=== PATIENT | male | born 1950 | race Two or more races ===

== ENCOUNTER 2022-06-25 12:20 | Outpatient (CLI) | payer MEDICARE, OTHER | END 2022-06-25 23:59 | disposition home or self-care (01) | LOC: WOU 12:20 | PROVIDERS: ATTEND Podiatrist Foot & Ankle Surgery | DX: I83.893 Varicose veins of bilateral lower extremities with other complications (principal); L03.116 Cellulitis of left lower limb; L03.115 Cellulitis of right lower limb; I89.0 Lymphedema, not elsewhere classified; B35.1 Tinea unguium; L60.2 Onychogryphosis; E66.01 Morbid (severe) obesity due to excess calories; Z68.36 Body mass index [BMI] 36.0-36.9, adult; E11.9 Type 2 diabetes mellitus without complications; Z79.4 Long term (current) use of insulin; Z79.82 Long term (current) use of aspirin; Z79.899 Other long term (current) drug therapy; I25.10 Atherosclerotic heart disease of native coronary artery without angina pectoris; Z98.61 Coronary angioplasty status; J44.9 Chronic obstructive pulmonary disease, unspecified; Z87.891 Personal history of nicotine dependence; Z80.0 Family history of malignant neoplasm of digestive organs; Z82.49 Family history of ischemic heart disease and other diseases of the circulatory system | CPT/HCPCS: G0463 ==

== ENCOUNTER 2022-07-24 05:24 | Emergency (ER) | payer MEDICARE, OTHER ==
[~2022-07-24] VITALS: Ht 177.8 cm; Wt 101.2 kg
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
--- NOTE | 2022-07-24 05:37 | NUR ---
emt aty bedside for ekg
--- NOTE | 2022-07-24 05:41 | NUR ---
xray at bedside
--- NOTE | 2022-07-24 05:47 | NUR ---
PT DID NOT WISH TO HAVE IV LINE INSERTED AT THIS TIME BUT CONSENTED TO BLOOD DRAW. PHLEBOTIMIST PAGED.
[2022-07-24 06:02] LABS: BASOPHILS # (AUTO) 0.1 K/uL (0.0-0.2); BASOPHILS % (AUTO) 0.9 % (0.0-2.0); EOSINOPHILS % (AUTO) 2.4 % (0.0-6.0); HEMATOCRIT 44 % (39-51); HEMOGLOBIN 14.6 g/dL (13.5-17.5); LYMPHOCYTES # (AUTO) 1.9 K/uL (0.8-4.8); LYMPHOCYTES % (AUTO) 29.1 % (20.0-44.0); MEAN CORPUSCULAR HGB CONC 34 g/dl (31.0-36.0); MEAN CORPUSCULAR VOLUME 90 fL (80-96); MONOCYTES # (AUTO) 0.5 K/uL (0.1-1.30); MONOCYTES % (AUTO) 7.5 % (2.0-12.0); NEUTROPHILS % (AUTO) 60.1 % (43.0-81.0); PLATELET COUNT (AUTO) 135 K/uL (150-450); RED BLOOD CELL COUNT(AUTO) 4.87 MIL/uL (4.5-6.0); WHITE BLOOD COUNT (AUTO) 6.6 K/uL (4.3-11.0)
[2022-07-24 06:09] LABS: CALCIUM, SERUM 9.9 mg/dL (8.5-10.1); CARBON DIOXIDE 35 mmol/L (21-32); CHLORIDE 103 mmol/L (98-107); GLUCOSE 145 mg/dL (74-106); POTASSIUM 3.9 mmol/L (3.5-5.1); SODIUM SERUM 140 mmol/L (136-145); UREA NITROGEN, BLOOD 20 mg/dL (7-18)
[2022-07-24] MEDS ORDERED: LOSA50TA39 PO (08:11)
[2022-07-24] MEDS ORDERED: SPIR25TA6 PO (08:11)
[2022-07-24] MEDS ORDERED: INSU100V7 SQ ×2 (08:11)
[2022-07-24] MEDS ORDERED: ASPI-1420 PO (08:11)
[2022-07-24] MEDS ORDERED: LOVA40TA2 PO (08:11)
[2022-07-24] MEDS ORDERED: INSU100I14 SQ (08:11)
[2022-07-24] MEDS ORDERED: CEPH500C2 PO (08:11)
[2022-07-24] MEDS ORDERED: EMPA25TA PO (08:11)
[2022-07-24] MEDS ORDERED: DOXY100C2 PO ×2 (08:29→09:33)
--- NOTE | 2022-07-24 08:44 | NUR ---
Patient discharged to home in stable condition. Written and verbal after care instructions given. Patient verbalizes understanding of instruction.
[2022-07-24 08:55] VITALS: BP 110/69
== END 2022-07-24 08:55 | disposition home or self-care (01) ==
LOC: ER 05:26
DX: R07.89 Other chest pain (principal); J44.9 Chronic obstructive pulmonary disease, unspecified; J18.9 Pneumonia, unspecified organism; I10 Essential (primary) hypertension; E11.9 Type 2 diabetes mellitus without complications; E78.5 Hyperlipidemia, unspecified; Z60.2 Problems related to living alone; Z79.899 Other long term (current) drug therapy
CPT/HCPCS: 36415; 71045-TC; 80048-TC; 84484-TC; 85025-TC

== ENCOUNTER 2023-12-04 13:55 | Inpatient (IN) | payer MEDICARE, OTHER ==
[~2023-12-04] VITALS: Ht 177.8 cm; Wt 104.3 kg
[~2023-12-04 13:55] MED LIST: ASPI-1420 PO; CEPH500C2 PO; DOXY100C2 PO; EMPA25TA PO; INSU100I14 SQ; INSU100V7 SQ; LOSA50TA39 PO; LOVA40TA2 PO; SPIR25TA6 PO
[2023-12-04] MEDS ORDERED: IPRATROPIUM NEB FS 0.5 MG/2.5 ML AMPUL.NEB NEB ONE (15:00)
[2023-12-04] MEDS ORDERED: ALBUTEROL FS 2.5 MG/3 ML VIAL.NEB NEB ONE (15:00)
[2023-12-04] MEDS ORDERED: Magnesium 1GM/D5W 100ML PREMIX 200 ML IV ONE (15:00)
[2023-12-04] MEDS ORDERED: methylPREDNISolone SOD SUCC 125 MG/2ML VIAL IV ONE (15:00)
[2023-12-04] MEDS ORDERED: methylPREDNISolone SOD SUCC 125 MG/2ML VIAL ONE (15:06)
[2023-12-04] MEDS ORDERED: Magnesium 1GM/D5W 100ML PREMIX 100 ML IV ONE (15:06)
[2023-12-04] MEDS ORDERED: IPRATROPIUM NEB FS 0.5 MG/2.5 ML AMPUL.NEB ONE (15:37)
[2023-12-04] MEDS ORDERED: ALBUTEROL FS 2.5 MG/3 ML VIAL.NEB ONE (15:37)
[2023-12-04 15:39] LABS: BASOPHILS # (AUTO) 0.1 K/uL (0.0-0.2); BASOPHILS % (AUTO) 0.5 % (0.0-2.0); EOSINOPHILS % (AUTO) 0.4 % (0.0-6.0); HEMATOCRIT 46 % (39-51); HEMOGLOBIN 15.8 g/dL (13.5-17.5); LYMPHOCYTES # (AUTO) 1.5 K/uL (0.8-4.8); LYMPHOCYTES % (AUTO) 13.6 % (20.0-44.0); MEAN CORPUSCULAR HEMOGLOBIN 32 PG (26.0-33.0); MEAN CORPUSCULAR HGB CONC 34 g/dl (31.0-36.0); MEAN CORPUSCULAR VOLUME 93 fL (80-96); MONOCYTES # (AUTO) 0.5 K/uL (0.1-1.30); MONOCYTES % (AUTO) 4.8 % (2.0-12.0); NEUTROPHILS # (AUTO) 9.1 K/uL (1.8-8.9); NEUTROPHILS % (AUTO) 80.7 % (43.0-81.0); PLATELET COUNT (AUTO) 204 K/uL (150-450); RED BLOOD CELL COUNT(AUTO) 5.01 MIL/uL (4.5-6.0); RED CELL DISTRIBUTION WIDTH 15.5 % (11.5-15.0); WHITE BLOOD COUNT (AUTO) 11.3 K/uL (4.3-11.0)
[2023-12-04 15:45] VITALS: O2SAT 92
[2023-12-04] MEDS ORDERED: AMIO200T5 PO (15:53)
[2023-12-04] MEDS ORDERED: APIX5TAB PO (15:53)
[2023-12-04] MEDS ORDERED: DILT-32 PO (15:53)
[2023-12-04] MEDS ORDERED: CHOL400C8 PO (15:53)
[2023-12-04] MEDS ORDERED: CIPR250T4 PO (15:53)
[2023-12-04 15:58] VITALS: O2SAT 99
[2023-12-04 16:00] LABS: ALANINE AMINOTRANSFERASE 22 U/L (12-78); ALKALINE PHOSPHATASE 112 U/L (46-116); ASPARTATE AMINOTRANSFERASE 19 U/L (15-37); BILIRUBIN,DIRECT 0.6 mg/dL (0.0-0.2); CALCIUM, SERUM 10.2 mg/dL (8.5-10.1); CARBON DIOXIDE 33 mmol/L (21-32); CHLORIDE 99 mmol/L (98-107); CREATININE 1.1 mg/dL (0.6-1.3); GLUCOSE 198 mg/dL (74-106); SODIUM SERUM 137 mmol/L (136-145); TOTAL PROTEIN, SERUM 7.7 g/dL (6.4-8.2); UREA NITROGEN, BLOOD 25 mg/dL (7-18)
[2023-12-04 17:21] LABS: ANISOCYTOSIS 1+; EOSINOPHILS % (MANUAL) 1 % (0-4); LYMPHOCYTES % (MANUAL) 18 % (16-48); MONOCYTES % (MANUAL) 7 % (0-11.0); NEUTROPHILS % (MANUAL) 74 (42-76); PLATELET ESTIMATE ADEQUATE
[2023-12-04] MEDS ORDERED: ACETAMINOPHEN 325 MG TABLET PO PRN (18:00)
[2023-12-04] MEDS ORDERED: Z GUARD REMEDY 4 OZ OINT TP PRN (18:00)
[2023-12-04] MEDS ORDERED: AZITHROMYCIN 250 MG TABLET PO ONE (18:00)
[2023-12-04] MEDS ORDERED: MAGNESIUM HYDROXIDE 30 ML UDC PO PRN (18:00)
[2023-12-04] MEDS ORDERED: MAG HYDROX/AL HYDROX/SIMETH 30 ML UDC PO PRN (18:00)
[2023-12-04] MEDS ORDERED: ONDANSETRON HCL/PF 4 MG/2 ML VIAL IVP PRN (18:00)
[2023-12-04] MEDS ORDERED: DEXTROSE 50%-WATER 50 ML DISP.SYRIN IV PRN (18:30)
[2023-12-04] MEDS ORDERED: BUMETANIDE INJ 4 MG in IV NS 0.9% 24 ML IV ONE (18:30)
[2023-12-04 19:23] LABS: THYROID STIMULATING HORMONE 1.038 uIU/mL (0.358-3.74)
[2023-12-04 20:00] VITALS: BP 124/58; TEMP 97.6; O2SAT 97
[2023-12-04] MEDS: IPRATROPIUM NEB FS 0.5 MG/2.5 ML AMPUL.NEB NEB SCH (20:28)
[2023-12-04 20:29] VITALS: O2SAT 94
[2023-12-04] MEDS: ALBUTEROL FS 2.5 MG/3 ML VIAL.NEB NEB SCH (20:29)
[2023-12-04 20:41] VITALS: O2SAT 95
[2023-12-04] MEDS: ATORVASTATIN 40 MG TABLET PO SCH (22:21)
[2023-12-04] MEDS: methylPREDNISolone SOD SUCC 40 MG/ML VIAL IV SCH (22:21)
[2023-12-04] MEDS: INSULIN GLARGINE, 100 UNIT/ML CARTRIDGE SQ SCH (22:44)
[2023-12-04] MEDS: INSULIN REGULAR, HUMAN 100 UNIT/ML 3 ML VIAL SQ PRN (22:46)
[2023-12-04] MEDS: BLOOD SUGAR DIAGNOSTIC 1 EACH STRIP IN SCH (22:53)
[2023-12-05] VITALS (11 sets, daily range): BP systolic 85–148; BP diastolic 56–67; TEMP 97.6–98.2; O2SAT 95–100
[2023-12-05] MEDS: methylPREDNISolone SOD SUCC 40 MG/ML VIAL IV SCH ×3 (05:57→20:20)
[2023-12-05 06:48] LABS: BASOPHILS % (AUTO) 0.1 % (0.0-2.0); EOSINOPHILS % (AUTO) 0.1 % (0.0-6.0); HEMATOCRIT 45 % (39-51); HEMOGLOBIN 15.3 g/dL (13.5-17.5); LYMPHOCYTES # (AUTO) 0.6 K/uL (0.8-4.8); LYMPHOCYTES % (AUTO) 8.6 % (20.0-44.0); MEAN CORPUSCULAR HEMOGLOBIN 32 PG (26.0-33.0); MEAN CORPUSCULAR HGB CONC 34 g/dl (31.0-36.0); MEAN CORPUSCULAR VOLUME 92 fL (80-96); MONOCYTES # (AUTO) 0.2 K/uL (0.1-1.30); MONOCYTES % (AUTO) 2.5 % (2.0-12.0); NEUTROPHILS # (AUTO) 6.3 K/uL (1.8-8.9); NEUTROPHILS % (AUTO) 88.7 % (43.0-81.0); PLATELET COUNT (AUTO) 181 K/uL (150-450); RED BLOOD CELL COUNT(AUTO) 4.86 MIL/uL (4.5-6.0); WHITE BLOOD COUNT (AUTO) 7.2 K/uL (4.3-11.0)
[2023-12-05] MEDS: INSULIN REGULAR, HUMAN 100 UNIT/ML 3 ML VIAL SQ PRN ×3 (06:54→21:29)
[2023-12-05] MEDS: ALBUTEROL FS 2.5 MG/3 ML VIAL.NEB NEB SCH ×4 (07:47→20:28)
[2023-12-05] MEDS: IPRATROPIUM NEB FS 0.5 MG/2.5 ML AMPUL.NEB NEB SCH ×4 (07:47→20:28)
[2023-12-05] MEDS: BLOOD SUGAR DIAGNOSTIC 1 EACH STRIP IN SCH ×4 (07:51→21:26)
[2023-12-05] MEDS: PANTOPRAZOLE 40 MG TABLET.DR PO SCH (07:51)
[2023-12-05] MEDS: ASPIRIN EC 81 MG TABLET.DR PO SCH (08:15)
[2023-12-05] MEDS: AMIODARONE HCL 200 MG TABLET PO SCH (08:15)
[2023-12-05] MEDS: SPIRONOLACTONE 25 MG TABLET PO SCH ×2 (08:15→09:00)
[2023-12-05] MEDS: DILTIAZEM HCL CD 120 MG PO SCH (08:15)
[2023-12-05] MEDS: LOSARTAN POTASSIUM 50 MG TABLET PO SCH (08:15)
[2023-12-05] MEDS: APIXABAN 5 MG TABLET PO SCH ×2 (08:16→17:08)
[2023-12-05] MEDS: EMPAGLIFLOZIN 25 MG TABLET PO SCH (08:17)
[2023-12-05 08:18] LABS: CALCIUM, SERUM 9.9 mg/dL (8.5-10.1); MAGNESIUM 2.4 mg/dL (1.8-2.4); PHOSPHORUS 4.7 mg/dL (2.5-4.9); POTASSIUM 4.3 mmol/L (3.5-5.1)
[2023-12-05] MEDS: INSULIN GLARGINE, 100 UNIT/ML CARTRIDGE SQ SCH ×2 (08:26→21:28)
[2023-12-05 09:50] LABS: ABG BASE EXCESS 4.7 mmol/L; ABG OXYGEN SATURATION 93.6 % (92.0-98.5); ABG PCO2 66.2 mmHg (35.0-45.0); ABG PO2 70.5 mmHg (75.0-100.0); ABG TOTAL HEMOGLOBIN 16.4 G/dL (13.5-18.0); AaDO2 80.2 mmHg; COHb 1.7 % (0.5-1.5); MetHb 0.1 % (0.0-1.5); O2Hb 91.9 % (94.0-97.0); SITE, ABG Left Radial; VENT MODE, BG 3L NC
[2023-12-05 11:22] LABS: BAND % (MANUAL) 5 % (0.0-5.0); EOSINOPHILS % (MANUAL) 0 % (0-4); LYMPHOCYTES % (MANUAL) 11 % (16-48); MONOCYTES % (MANUAL) 3 % (0-11.0); NEUTROPHILS % (MANUAL) 81 (42-76); PLATELET ESTIMATE ADEQUATE
[2023-12-05] MEDS: AMOXICILLIN TRIHYDRATE 250 MG CAPSULE PO SCH ×2 (13:25→20:20)
[2023-12-05] MEDS: AZITHROMYCIN 250 MG TABLET PO SCH (17:08)
[2023-12-05] MEDS: ATORVASTATIN 40 MG TABLET PO SCH (21:31)
[2023-12-06] VITALS (12 sets, daily range): BP systolic 107–128; BP diastolic 47–82; TEMP 97.7–98.2; O2SAT 93–99
[2023-12-06] MEDS ORDERED: DEXTROSE 50%-WATER 50 ML DISP.SYRIN IV PRN (01:00)
[2023-12-06] MEDS: BLOOD SUGAR DIAGNOSTIC 1 EACH STRIP IN SCH ×6 (01:08→21:55)
[2023-12-06] MEDS: INSULIN REGULAR, HUMAN 100 UNIT/ML 3 ML VIAL SQ PRN ×6 (01:12→22:52)
[2023-12-06] MEDS: methylPREDNISolone SOD SUCC 40 MG/ML VIAL IV SCH ×3 (04:54→21:38)
[2023-12-06] MEDS: AMOXICILLIN TRIHYDRATE 250 MG CAPSULE PO SCH ×3 (04:54→21:38)
[2023-12-06] MEDS: IPRATROPIUM NEB FS 0.5 MG/2.5 ML AMPUL.NEB NEB SCH ×4 (08:18→19:54)
[2023-12-06] MEDS: ALBUTEROL FS 2.5 MG/3 ML VIAL.NEB NEB SCH ×4 (08:18→19:54)
[2023-12-06] MEDS: ASPIRIN EC 81 MG TABLET.DR PO SCH (09:04)
[2023-12-06] MEDS: DILTIAZEM HCL CD 120 MG PO SCH (09:05)
[2023-12-06] MEDS: PANTOPRAZOLE 40 MG TABLET.DR PO SCH (09:05)
[2023-12-06] MEDS: LOSARTAN POTASSIUM 50 MG TABLET PO SCH (09:06)
[2023-12-06] MEDS: AMIODARONE HCL 200 MG TABLET PO SCH (09:06)
[2023-12-06] MEDS: SPIRONOLACTONE 25 MG TABLET PO SCH (09:06)
[2023-12-06] MEDS: EMPAGLIFLOZIN 25 MG TABLET PO SCH (09:07)
[2023-12-06] MEDS: APIXABAN 5 MG TABLET PO SCH ×2 (09:13→17:22)
[2023-12-06] MEDS: INSULIN GLARGINE, 100 UNIT/ML CARTRIDGE SQ SCH ×2 (09:14→22:52)
[2023-12-06] MEDS: AZITHROMYCIN 250 MG TABLET PO SCH (17:16)
[2023-12-06] MEDS: ATORVASTATIN 40 MG TABLET PO SCH (21:38)
[2023-12-07] VITALS (11 sets, daily range): BP systolic 117–123; BP diastolic 46–101; TEMP 97.6–97.7; O2SAT 94–100
[2023-12-07] MEDS: BLOOD SUGAR DIAGNOSTIC 1 EACH STRIP IN SCH ×6 (01:00→21:51)
[2023-12-07] MEDS: methylPREDNISolone SOD SUCC 40 MG/ML VIAL IV SCH (04:57)
[2023-12-07] MEDS: AMOXICILLIN TRIHYDRATE 250 MG CAPSULE PO SCH ×3 (04:57→21:55)
[2023-12-07] MEDS: INSULIN REGULAR, HUMAN 100 UNIT/ML 3 ML VIAL SQ PRN ×4 (05:16→21:54)
[2023-12-07 07:23] LABS: HEMATOCRIT 46 % (39-51); HEMOGLOBIN 15.5 g/dL (13.5-17.5); LYMPHOCYTES # (AUTO) 0.6 K/uL (0.8-4.8); LYMPHOCYTES % (AUTO) 4.7 % (20.0-44.0); MEAN CORPUSCULAR HEMOGLOBIN 32 PG (26.0-33.0); MEAN CORPUSCULAR HGB CONC 34 g/dl (31.0-36.0); MEAN CORPUSCULAR VOLUME 93 fL (80-96); MONOCYTES # (AUTO) 0.2 K/uL (0.1-1.30); MONOCYTES % (AUTO) 1.7 % (2.0-12.0); NEUTROPHILS % (AUTO) 93.6 % (43.0-81.0); PLATELET COUNT (AUTO) 174 K/uL (150-450); WHITE BLOOD COUNT (AUTO) 11.8 K/uL (4.3-11.0)
[2023-12-07] MEDS: IPRATROPIUM NEB FS 0.5 MG/2.5 ML AMPUL.NEB NEB SCH ×4 (07:46→20:14)
[2023-12-07] MEDS: ALBUTEROL FS 2.5 MG/3 ML VIAL.NEB NEB SCH ×4 (07:46→20:14)
[2023-12-07 07:58] LABS: CALCIUM, SERUM 9.4 mg/dL (8.5-10.1); CREATININE 0.9 mg/dL (0.6-1.3); PHOSPHORUS 4.6 mg/dL (2.5-4.9); POTASSIUM 4.3 mmol/L (3.5-5.1)
[2023-12-07] MEDS: LOSARTAN POTASSIUM 50 MG TABLET PO SCH (08:33)
[2023-12-07] MEDS: DILTIAZEM HCL CD 120 MG PO SCH (08:34)
[2023-12-07] MEDS: EMPAGLIFLOZIN 25 MG TABLET PO SCH (08:34)
[2023-12-07] MEDS: ASPIRIN EC 81 MG TABLET.DR PO SCH (08:34)
[2023-12-07] MEDS: PANTOPRAZOLE 40 MG TABLET.DR PO SCH (08:35)
[2023-12-07] MEDS: SPIRONOLACTONE 25 MG TABLET PO SCH (08:35)
[2023-12-07] MEDS: AMIODARONE HCL 200 MG TABLET PO SCH (08:35)
[2023-12-07] MEDS: APIXABAN 5 MG TABLET PO SCH ×2 (08:36→17:45)
[2023-12-07] MEDS: INSULIN GLARGINE, 100 UNIT/ML CARTRIDGE SQ SCH ×2 (08:40→22:08)
[2023-12-07 08:56] LABS: MAGNESIUM 2.4 mg/dL (1.8-2.4)
[2023-12-07 10:48] LABS: NEUTROPHILS % (MANUAL) 90 (42-76)
[2023-12-07 10:49] LABS: BAND % (MANUAL) 2 % (0.0-5.0); BASOPHILS % (MANUAL) 0 % (0.0-2.0); EOSINOPHILS % (MANUAL) 0 % (0-4); LYMPHOCYTES % (MANUAL) 5 % (16-48); MONOCYTES % (MANUAL) 3 % (0-11.0); PLATELET ESTIMATE ADEQUATE; STOMATOCYTES 1+
[2023-12-07] MEDS: AZITHROMYCIN 250 MG TABLET PO SCH (17:43)
[2023-12-07] MEDS: ATORVASTATIN 40 MG TABLET PO SCH (21:54)
[2023-12-08] MEDS: BLOOD SUGAR DIAGNOSTIC 1 EACH STRIP IN SCH ×4 (01:12→12:45)
[2023-12-08] MEDS: INSULIN REGULAR, HUMAN 100 UNIT/ML 3 ML VIAL SQ PRN ×3 (01:15→12:48)
[2023-12-08] MEDS: AMOXICILLIN TRIHYDRATE 250 MG CAPSULE PO SCH ×2 (05:20→12:46)
[2023-12-08 07:10] LABS: EOSINOPHILS % (AUTO) 0.1 % (0.0-6.0); HEMATOCRIT 49 % (39-51); HEMOGLOBIN 16.4 g/dL (13.5-17.5); LYMPHOCYTES # (AUTO) 1.2 K/uL (0.8-4.8); LYMPHOCYTES % (AUTO) 7.5 % (20.0-44.0); MEAN CORPUSCULAR HEMOGLOBIN 31 PG (26.0-33.0); MEAN CORPUSCULAR HGB CONC 34 g/dl (31.0-36.0); MEAN CORPUSCULAR VOLUME 93 fL (80-96); MONOCYTES # (AUTO) 0.7 K/uL (0.1-1.30); MONOCYTES % (AUTO) 4.3 % (2.0-12.0); NEUTROPHILS # (AUTO) 14.4 K/uL (1.8-8.9); NEUTROPHILS % (AUTO) 88.1 % (43.0-81.0); PLATELET COUNT (AUTO) 203 K/uL (150-450); RED BLOOD CELL COUNT(AUTO) 5.25 MIL/uL (4.5-6.0); RED CELL DISTRIBUTION WIDTH 15.6 % (11.5-15.0); WHITE BLOOD COUNT (AUTO) 16.4 K/uL (4.3-11.0)
[2023-12-08 07:12] LABS: CARBON DIOXIDE 36 mmol/L (21-32); CHLORIDE 99 mmol/L (98-107); MAGNESIUM 2.5 mg/dL (1.8-2.4); PHOSPHORUS 4.3 mg/dL (2.5-4.9); POTASSIUM 3.6 mmol/L (3.5-5.1); SODIUM SERUM 140 mmol/L (136-145); UREA NITROGEN, BLOOD 24 mg/dL (7-18)
[2023-12-08] MEDS: IPRATROPIUM NEB FS 0.5 MG/2.5 ML AMPUL.NEB NEB SCH ×2 (07:34→11:36)
[2023-12-08] MEDS: ALBUTEROL FS 2.5 MG/3 ML VIAL.NEB NEB SCH ×2 (07:35→11:36)
[2023-12-08 07:37] VITALS: O2SAT 93
[2023-12-08 07:43] LABS: GLUCOSE 42 mg/dL (74-106)
[2023-12-08 07:52] VITALS: O2SAT 100
[2023-12-08 08:00] VITALS: BP 131/54; TEMP 98.4; O2SAT 96
[2023-12-08] MEDS: PANTOPRAZOLE 40 MG TABLET.DR PO SCH (08:52)
[2023-12-08] MEDS: SPIRONOLACTONE 25 MG TABLET PO SCH (08:53)
[2023-12-08] MEDS: ASPIRIN EC 81 MG TABLET.DR PO SCH (08:53)
[2023-12-08] MEDS: DILTIAZEM HCL CD 120 MG PO SCH (08:54)
[2023-12-08] MEDS: EMPAGLIFLOZIN 25 MG TABLET PO SCH (08:54)
[2023-12-08] MEDS: AMIODARONE HCL 200 MG TABLET PO SCH (08:54)
[2023-12-08 08:55] VITALS: BP 131/60
[2023-12-08] MEDS: LOSARTAN POTASSIUM 50 MG TABLET PO SCH (08:55)
[2023-12-08] MEDS: APIXABAN 5 MG TABLET PO SCH (08:56)
[2023-12-08] MEDS: INSULIN GLARGINE, 100 UNIT/ML CARTRIDGE SQ SCH (08:56)
[2023-12-08] MEDS ORDERED: methylPREDNISolone SOD SUCC 40 MG/ML VIAL IV SCH (09:00)
[2023-12-08] MEDS ORDERED: MUPIROCIN OINT 2% 22 GM TUBE TP SCH (09:00)
[2023-12-08 11:38] VITALS: O2SAT 96
[2023-12-08 11:48] VITALS: O2SAT 100
[2023-12-08] MEDS ORDERED: INSULIN GLARGINE, 100 UNIT/ML CARTRIDGE SQ SCH (22:00)
== END 2023-12-08 14:11 | disposition home or self-care (01) | DRG 190 ==
LOC: ER 15:30 → TELE 16:35 → MED 12-06 15:51
PROVIDERS: ADMIT Nurse Practitioner Acute Care; ATTEND Internal Medicine
PROC: 0HDNXZZ Extraction of Left Foot Skin, External Approach (ICD-10-PCS; principal; 2023-12-07)
PROC: 0HDLXZZ Extraction of Left Lower Leg Skin, External Approach (ICD-10-PCS; 2023-12-08)
DX: J44.1 Chronic obstructive pulmonary disease with (acute) exacerbation (principal); I50.33 Acute on chronic diastolic (congestive) heart failure; J96.21 Acute and chronic respiratory failure with hypoxia; J96.22 Acute and chronic respiratory failure with hypercapnia; Z59.00 Homelessness unspecified; E87.3 Alkalosis; E11.65 Type 2 diabetes mellitus with hyperglycemia; E11.51 Type 2 diabetes mellitus with diabetic peripheral angiopathy without gangrene; E11.42 Type 2 diabetes mellitus with diabetic polyneuropathy; Z79.01 Long term (current) use of anticoagulants; Z79.4 Long term (current) use of insulin; Z79.84 Long term (current) use of oral hypoglycemic drugs; Z79.899 Other long term (current) drug therapy; D72.829 Elevated white blood cell count, unspecified; E78.5 Hyperlipidemia, unspecified; E83.52 Hypercalcemia; I11.0 Hypertensive heart disease with heart failure; Z79.82 Long term (current) use of aspirin; Z87.891 Personal history of nicotine dependence; E86.0 Dehydration; T38.0X5A Adverse effect of glucocorticoids and synthetic analogues, initial encounter; Y92.9 Unspecified place or not applicable; E66.9 Obesity, unspecified; Z68.33 Body mass index [BMI] 33.0-33.9, adult
CPT/HCPCS: 36415; 36600; 71045-TC; 80048-TC; 80061-TC; 80076-TC; 82803-TC; 82962-TC; 83735-TC; 83880; 83970; 84100-TC; 84443-TC; 84484-TC; 85025-TC; 87081-TC; 93307-TC; 94799-TC; A4223; G0378; J1815; J2920; J2930; J3475; J3490; J7030; J7050

== ENCOUNTER 2023-12-16 23:59 | Inpatient (IN) | payer MEDICARE, OTHER ==
[~2023-12-16] VITALS: Ht 177.8 cm; Wt 108.4 kg
[~2023-12-16 23:59] MED LIST changes: +AMIO200T5 PO; +APIX5TAB PO; -CEPH500C2 PO; +CHOL400C8 PO; +CIPR250T4 PO; +DILT-32 PO; -DOXY100C2 PO; -INSU100I14 SQ
[2023-12-17 00:58] LABS: BASOPHILS % (AUTO) 0.2 % (0.0-2.0); EOSINOPHILS # (AUTO) 0.1 K/uL (0.0-0.7); EOSINOPHILS % (AUTO) 0.7 % (0.0-6.0); HEMATOCRIT 51 % (39-51); HEMOGLOBIN 17.2 g/dL (13.5-17.5); LYMPHOCYTES % (AUTO) 7.5 % (20.0-44.0); MEAN CORPUSCULAR HEMOGLOBIN 32 PG (26.0-33.0); MEAN CORPUSCULAR HGB CONC 34 g/dl (31.0-36.0); MEAN CORPUSCULAR VOLUME 96 fL (80-96); MONOCYTES # (AUTO) 0.4 K/uL (0.1-1.30); MONOCYTES % (AUTO) 2.9 % (2.0-12.0); NEUTROPHILS # (AUTO) 12.2 K/uL (1.8-8.9); NEUTROPHILS % (AUTO) 88.7 % (43.0-81.0); PLATELET COUNT (AUTO) 174 K/uL (150-450); RED BLOOD CELL COUNT(AUTO) 5.36 MIL/uL (4.5-6.0); RED CELL DISTRIBUTION WIDTH 17.6 % (11.5-15.0); WHITE BLOOD COUNT (AUTO) 13.8 K/uL (4.3-11.0)
[2023-12-17 01:13] LABS: CALCIUM, SERUM 9.4 mg/dL (8.5-10.1); CREATININE 1.1 mg/dL (0.6-1.3); POTASSIUM 4.3 mmol/L (3.5-5.1)
[2023-12-17 01:18] LABS: LACTIC ACID 1.3 mmol/L (0.4-2.0)
[2023-12-17 01:27] LABS: ALBUMIN 3.3 g/dL (3.4-5.0); TOTAL PROTEIN, SERUM 6.7 g/dL (6.4-8.2)
[2023-12-17 01:50] LABS: APPEARANCE,URINE CLEAR (CLEAR); BILIRUBIN,URINE 1+ (NEGATIVE); BLOOD, URINE NEGATIVE Ery/uL (NEGATIVE); COLOR,URINE YELLOW (YELLOW); KETONES,URINE 1+ mg/dL (NEGATIVE); LEUKOCYTE ESTERASE ,URINE NEGATIVE (NEGATIVE); NITRITE, URINE NEGATIVE (NEGATIVE); PH,URINE 5.5 (5.0-8.0); PROTEIN,URINE NEGATIVE (NEGATIVE); UGLUCOSE 3+ mg/dL (NEGATIVE)
[2023-12-17 02:01] LABS: RBC,URINE 0-2 /HPF (0-2); WBC,URINE NONE SEEN /HPF (0-3)
[2023-12-17 02:02] LABS: ADD URINE CULTURE NO; BACTERIA,URINE Rare /HPF (None Seen); SQUAMOUS EPITHELIAL CELL,UR Rare /HPF (None Seen)
[2023-12-17] MEDS ORDERED: hydrALAZINE HCL IV 20 MG VIAL IV PRN (06:30)
[2023-12-17] MEDS ORDERED: MORPHINE SULFATE INJ 2 MG/ML DISP.SYRIN IV PRN (06:30)
[2023-12-17] MEDS ORDERED: ALBUTEROL FS 2.5 MG/0.5 ML VIAL.NEB NEB PRN (06:30)
[2023-12-17] MEDS ORDERED: ACETAMINOPHEN 325 MG TABLET PO PRN (06:30)
[2023-12-17] MEDS ORDERED: ONDANSETRON HCL/PF 4 MG/2 ML VIAL IVP PRN (06:30)
[2023-12-17] MEDS ORDERED: DEXTROSE 50%-WATER 50 ML DISP.SYRIN IV PRN (06:30)
[2023-12-17 06:55] LABS: ABG BASE EXCESS 1.4 mmol/L; ABG OXYGEN SATURATION 92.3 % (92.0-98.5); ABG PCO2 50.5 mmHg (35.0-45.0); ABG PH 7.361 (7.350-7.450); ABG PO2 63.1 mmHg (75.0-100.0); ABG TOTAL HEMOGLOBIN 17.8 G/dL (13.5-18.0); COHb 2.2 % (0.5-1.5); MetHb 0.6 % (0.0-1.5); O2Hb 89.7 % (94.0-97.0); SITE, ABG Right Radial; VENT MODE, BG Room Air
[2023-12-17] MEDS ORDERED: CHOL200059 PO (08:01)
[2023-12-17] MEDS ORDERED: HEPARIN SODIUM, PORCINE 5000 UNITS/1 ML VIAL SQ SCH (09:00)
[2023-12-17] MEDS: LOSARTAN POTASSIUM 50 MG TABLET PO SCH (11:30)
[2023-12-17] MEDS: SPIRONOLACTONE 25 MG TABLET PO SCH (12:59)
[2023-12-17] MEDS: ASPIRIN EC 81 MG TABLET.DR PO SCH (12:59)
[2023-12-17] MEDS: methylPREDNISolone SOD SUCC 40 MG/ML VIAL IV SCH ×2 (12:59→14:03)
[2023-12-17] MEDS: FUROSEMIDE 40 MG/4 ML VIAL IV SCH (12:59)
[2023-12-17] MEDS: AMIODARONE HCL 200 MG TABLET PO SCH (13:01)
[2023-12-17] MEDS: DILTIAZEM HCL CD 120 MG PO SCH (13:01)
[2023-12-17] MEDS: APIXABAN 5 MG TABLET PO SCH (13:03)
[2023-12-17] MEDS: BLOOD SUGAR DIAGNOSTIC 1 EACH STRIP VI SCH (14:16)
[2023-12-17 16:00] VITALS: BP 81/36; TEMP 99.2; O2SAT 85
[2023-12-17] MEDS: INSULIN REGULAR, HUMAN 100 UNIT/ML 3 ML VIAL SQ PRN (17:00)
[2023-12-17 20:00] VITALS: BP 90/40; TEMP 99; O2SAT 95
[2023-12-17] MEDS: IPRATROPIUM NEB FS 0.5 MG/2.5 ML AMPUL.NEB NEB SCH (21:28)
[2023-12-17] MEDS: ALBUTEROL FS 2.5 MG/3 ML VIAL.NEB NEB SCH (21:28)
[2023-12-17 21:29] VITALS: O2SAT 96
[2023-12-17 21:45] VITALS: O2SAT 97
[2023-12-17] MEDS: INSULIN GLARGINE, 100 UNIT/ML CARTRIDGE SQ SCH (22:00)
[2023-12-17] MEDS: IV NS 0.9% 1,000 ML BAG IV ONE (22:03)
[2023-12-17 23:30] VITALS: BP 111/62
[2023-12-17] MEDS: *INSULIN REGULAR(HUMULIN R)HUM 100 UNIT/ML VIAL SQ PRN (23:35)
[2023-12-18] VITALS (13 sets, daily range): BP systolic 90–117; BP diastolic 40–63; TEMP 97.3–99; O2SAT 89–98
[2023-12-18 05:47] LABS: BASOPHILS % (AUTO) 0.1 % (0.0-2.0); HEMATOCRIT 44 % (39-51); HEMOGLOBIN 15.1 g/dL (13.5-17.5); LYMPHOCYTES # (AUTO) 0.7 K/uL (0.8-4.8); LYMPHOCYTES % (AUTO) 7.5 % (20.0-44.0); MEAN CORPUSCULAR HEMOGLOBIN 32 PG (26.0-33.0); MEAN CORPUSCULAR HGB CONC 34 g/dl (31.0-36.0); MEAN CORPUSCULAR VOLUME 94 fL (80-96); MONOCYTES # (AUTO) 0.1 K/uL (0.1-1.30); MONOCYTES % (AUTO) 1.2 % (2.0-12.0); NEUTROPHILS % (AUTO) 91.2 % (43.0-81.0); PLATELET COUNT (AUTO) 146 K/uL (150-450); RED BLOOD CELL COUNT(AUTO) 4.74 MIL/uL (4.5-6.0); WHITE BLOOD COUNT (AUTO) 8.8 K/uL (4.3-11.0)
[2023-12-18 06:05] LABS: ALBUMIN 2.6 g/dL (3.4-5.0); BILIRUBIN,TOTAL 1.1 mg/dL (0.2-1.0); CALCIUM, SERUM 8.5 mg/dL (8.5-10.1); CREATININE 1.3 mg/dL (0.6-1.3); MAGNESIUM 2.4 mg/dL (1.8-2.4); PHOSPHORUS 4.8 mg/dL (2.5-4.9); POTASSIUM 4.3 mmol/L (3.5-5.1); TOTAL PROTEIN, SERUM 5.5 g/dL (6.4-8.2)
[2023-12-18] MEDS: ATORVASTATIN 10 MG TABLET PO SCH (08:54)
[2023-12-18] MEDS: INSULIN GLARGINE, 100 UNIT/ML CARTRIDGE SQ SCH (08:56)
[2023-12-18] MEDS: SIMETHICONE 80 MG TAB.CHEW PO PRN (21:29)
[2023-12-19] VITALS (13 sets, daily range): BP systolic 94–117; BP diastolic 40–52; TEMP 96.7–97.9; O2SAT 92–99
[2023-12-19 06:05] LABS: HEMATOCRIT 42 % (39-51); HEMOGLOBIN 14.6 g/dL (13.5-17.5); LYMPHOCYTES # (AUTO) 0.2 K/uL (0.8-4.8); LYMPHOCYTES % (AUTO) 3.9 % (20.0-44.0); MEAN CORPUSCULAR HEMOGLOBIN 32 PG (26.0-33.0); MEAN CORPUSCULAR HGB CONC 35 g/dl (31.0-36.0); MEAN CORPUSCULAR VOLUME 94 fL (80-96); MONOCYTES # (AUTO) 0.1 K/uL (0.1-1.30); MONOCYTES % (AUTO) 1.8 % (2.0-12.0); NEUTROPHILS % (AUTO) 94.3 % (43.0-81.0); PLATELET COUNT (AUTO) 133 K/uL (150-450); RED BLOOD CELL COUNT(AUTO) 4.52 MIL/uL (4.5-6.0); RED CELL DISTRIBUTION WIDTH 17.2 % (11.5-15.0); WHITE BLOOD COUNT (AUTO) 5.3 K/uL (4.3-11.0)
[2023-12-19 06:19] LABS: CALCIUM, SERUM 8.7 mg/dL (8.5-10.1); CREATININE 1.2 mg/dL (0.6-1.3); MAGNESIUM 2.6 mg/dL (1.8-2.4); PHOSPHORUS 4.2 mg/dL (2.5-4.9); POTASSIUM 3.6 mmol/L (3.5-5.1)
[2023-12-19] MEDS: MUPIROCIN OINT 2% 22 GM TUBE TP SCH (08:55)
[2023-12-19] MEDS ORDERED: IV D5/ 0.9% NACL 1,000 ML IV PRN (13:30)
[2023-12-20 06:36] LABS: HEMATOCRIT 46 % (39-51); HEMOGLOBIN 15.3 g/dL (13.5-17.5); LYMPHOCYTES # (AUTO) 0.5 K/uL (0.8-4.8); LYMPHOCYTES % (AUTO) 11.5 % (20.0-44.0); MEAN CORPUSCULAR HEMOGLOBIN 31 PG (26.0-33.0); MEAN CORPUSCULAR HGB CONC 33 g/dl (31.0-36.0); MEAN CORPUSCULAR VOLUME 94 fL (80-96); MONOCYTES # (AUTO) 0.1 K/uL (0.1-1.30); MONOCYTES % (AUTO) 2.3 % (2.0-12.0); NEUTROPHILS # (AUTO) 3.5 K/uL (1.8-8.9); NEUTROPHILS % (AUTO) 86.2 % (43.0-81.0); PLATELET COUNT (AUTO) 116 K/uL (150-450); RED CELL DISTRIBUTION WIDTH 17.4 % (11.5-15.0)
[2023-12-20 06:54] LABS: CALCIUM, SERUM 8.7 mg/dL (8.5-10.1); CREATININE 0.9 mg/dL (0.6-1.3); MAGNESIUM 2.4 mg/dL (1.8-2.4); PHOSPHORUS 3.3 mg/dL (2.5-4.9); POTASSIUM 3.5 mmol/L (3.5-5.1)
[2023-12-20 07:30] VITALS: BP 103/51; TEMP 97.5; O2SAT 99
[2023-12-20 08:00] VITALS: O2SAT 98
[2023-12-20 08:15] VITALS: O2SAT 99
[2023-12-20] MEDS: MORPHINE SULFATE INJ 4 MG/ML DISP.SYRIN IV PRN (11:01)
[2023-12-20] MEDS: LIDOCAINE /MPF 1% VIAL 5 ML VIAL NEB ONE (11:21)
[2023-12-20 20:02] VITALS: O2SAT 96
[2023-12-20 20:12] VITALS: O2SAT 99
[2023-12-20] MEDS: DIPHENOXYLATE HCL/ATROP SULF 1 UDTAB TABLET PO PRN (22:10)
[2023-12-21] VITALS (9 sets, daily range): BP systolic 106–129; BP diastolic 51–66; TEMP 97.7–97.9; O2SAT 95–98
[2023-12-21] MEDS ORDERED: METH4TAB3 PO (12:53)
[2023-12-21] MEDS ORDERED: ALBU8.5H8 INH (12:53)
[2023-12-21] MEDS ORDERED: BISMUTH SUBSALICYLATE 262 MG/15 ML BOTTLE PO PRN (13:00)
[2023-12-21] MEDS: MAG HYDROX/AL HYDROX/SIMETH 30 ML UDC PO PRN (15:38)
[2023-12-22 07:42] VITALS: O2SAT 97
[2023-12-22 07:52] VITALS: O2SAT 98
[2023-12-22 08:00] VITALS: BP 120/40; TEMP 97.3; O2SAT 99
[2023-12-22 08:43] VITALS: BP 120/60
[2023-12-22] MEDS: METOCLOPRAMIDE HCL 10 MG/2 ML VIAL IV SCH (12:23)
[2023-12-22] MEDS ORDERED: DICYCLOMINE HCL 10 MG CAPSULE PO SCH (18:00)
== END 2023-12-22 15:30 | disposition home or self-care (01) | DRG 191 ==
LOC: ER 12-17 00:10 → TELE 12-17 10:25 → MED 12-19 16:40
PROVIDERS: ADMIT Nurse Practitioner Acute Care; ATTEND Nurse Practitioner Acute Care
PROC: 0HDKXZZ Extraction of Right Lower Leg Skin, External Approach (ICD-10-PCS; principal; 2023-12-18)
DX: J44.1 Chronic obstructive pulmonary disease with (acute) exacerbation (principal); I13.0 Hypertensive heart and chronic kidney disease with heart failure and stage 1 through stage 4 chronic kidney disease, or unspecified chronic kidney disease; N17.9 Acute kidney failure, unspecified; Z59.00 Homelessness unspecified; K56.7 Ileus, unspecified; K56.600 Partial intestinal obstruction, unspecified as to cause; I50.9 Heart failure, unspecified; Z68.34 Body mass index [BMI] 34.0-34.9, adult; S81.802A Unspecified open wound, left lower leg, initial encounter; S81.801A Unspecified open wound, right lower leg, initial encounter; X58.XXXA Exposure to other specified factors, initial encounter; Y92.89 Other specified places as the place of occurrence of the external cause; E11.51 Type 2 diabetes mellitus with diabetic peripheral angiopathy without gangrene; E11.40 Type 2 diabetes mellitus with diabetic neuropathy, unspecified; E78.5 Hyperlipidemia, unspecified; Z79.01 Long term (current) use of anticoagulants; Z79.82 Long term (current) use of aspirin; Z79.4 Long term (current) use of insulin; Z79.899 Other long term (current) drug therapy; Z79.84 Long term (current) use of oral hypoglycemic drugs; E66.9 Obesity, unspecified; F17.200 Nicotine dependence, unspecified, uncomplicated; E11.22 Type 2 diabetes mellitus with diabetic chronic kidney disease; N18.9 Chronic kidney disease, unspecified; T38.0X5A Adverse effect of glucocorticoids and synthetic analogues, initial encounter; Y92.9 Unspecified place or not applicable; A08.4 Viral intestinal infection, unspecified; T50.2X5A Adverse effect of carbonic-anhydrase inhibitors, benzothiadiazides and other diuretics, initial encounter
CPT/HCPCS: 36415; 36600; 71045-TC; 74018; 80048-TC; 80053-TC; 81001; 82962-TC; 83605-TC; 83735-TC; 83880; 84100-TC; 84484-TC; 85025-TC; 94799-TC; A4223; G0378; J1815; J1940; J2270; J2765; J2920; J3490; J7030